=== PATIENT | female | born 1930 | race Caucasian/White ===

== ENCOUNTER → 2017-10-31 | Outpatient (CLI) | payer OTHER, BC ==
[~2017-10-31] MED LIST: ACIPHEX 20 MG T20 MG PO; ADULT LOW DOSE81 MG PO; ADVAIR 250-501 EACH INH; ADVAIR 500-501 EACH INH; ALBUTEROL NEB; ALEVE220 MG PO; APAP650 PO; ASPIRIN EC325 M1 PO; AZITHROMYCIN 2250 MG PO; AZITHROMYCIN PO; BACTRIM DS TAB1 EACH PO; BENZONATATE200 MG PO; BIAXIN 250MG T250 M1 PO; BROVANA15 MCG/2 M INH; BUDESONIDE0.25 MG/2 INH; CEFDINIR PO; CEFDINIR300 MG PO; CENTRUM SILVER1 EAC4 PO; COUMADIN 5 MG TA5 M1 PO; DOCUSATE SODIU100 MG; DUONEB 2.5-0.5 M3 ML INH; FLAGYL500 MG PO; FOSAMAX 70 MG T70 M1 PO; GABAPENTIN100 MG PO; LIDODERM 5%1 PATCH TOP; LIPITOR80 MG PO; LIVALO2 MG PO; LO-DOSE ASPIRIN81 M1 PO; LOMOTIL TABLET1 EACH PO; LOTRIMIN AF10 ML PO; LOVENOX SQ; MERREM 500500 MG/12 IV; METHOTREXATE 22.5 MG GT; MOBIC7.5 M1 PO; MUCINEX600 MG PO; NABUMETONE 500500 M1 PO; NEXIUM 40 MG CA40 M1 PO; NORCO 5-325 TA1 EACH PO; OMEPRAZOLE20 M2 PO; PLAVIX 75 MG TA75 MG PO; PRAVASTATIN SOD40 MG PO; PREDNISONE 10 M10 M1 PO; PREDNISONE 10 M10 MG; PREDNISONE 20 M20 M1 PO; PRILOSEC 20 MG20 MG PO; PROTONIX40 M2 PO; TESSALON PERLE100 MG PO; TRAMADOL 50 MG50 MG PO; TRAZODONE 150150 M1 PO; TRAZODONE HCL PO; ZPAK PO
== END ==
LOC: RAD 12:40
DX: M19.071 Primary osteoarthritis, right ankle and foot (principal)

== ENCOUNTER 2018-11-19 12:59 | Inpatient (IN) | payer OTHER, BC ==
[~2018-11-19] VITALS: Ht 160 cm; Wt 41.7 kg
[~2018-11-19 12:59] MED LIST changes: +MOBIC15 MG PO; -MOBIC7.5 M1 PO
[2018-11-19 13:48] LABS: ABSOLUTE NEUTROPHILS 4.4 thou/uL (1.4-8.2); BASOPHILS 0.3 % (0.0-2.0); EOSINOPHILS 1.3 % (0.0-3.0); HEMATOCRIT 44.6 % (37.0-47.0); LYMPHOCYTES 7.4 % (24.0-44.0); MCHC 33.6 g/dL (28.0-37.0); MCV 104.1 fL (80.0-100.0); MONOCYTES 7.5 % (1.0-8.0); PLATELET COUNT 126 thou/uL (150-400); POLYS 83.5 % (36.0-66.0); RBC 4.28 mil/uL (4.20-5.00); RDW 13.1 % (10.5-14.5); WBC 5.3 thou/uL (4.0-11.0)
[2018-11-19 13:58] LABS: ANION GAP 1 mmol/L (7-16); BUN 21 mg/dL (7-18); CHLORIDE 93 mmol/L (98-107); CO2 36 mmol/L (21-32); CREATININE 0.6 mg/dL (0.6-1.0); GLUCOSE 104 mg/dL (74-106); POTASSIUM 4.2 mmol/L (3.5-5.1); SODIUM 130 mmol/L (136-145)
[2018-11-19 14:01] LABS: BE(vivo) 5.6 mmol/L (-2 to +3); PO2 58.2 mmHg (80.0-100.0); sO2 86.4 % (92.0-98.0)
[2018-11-19 14:02] LABS: PCO2 72.4 mmHg (35.0-45.0); pH 7.302 (7.360-7.450)
[2018-11-19 14:08] LABS: ALBUMIN 3.3 g/dL (3.4-5.0); SGOT 22 U/L (15-37); SGPT 21 U/L (30-65); TOTAL BILIRUBIN 0.7 mg/dL (<0.1-1.0); TOTAL PROTEIN 7.4 g/dL (6.4-8.2); TROPONIN-I <0.06 ng/mL (<0.06)
[2018-11-19 15:12] LABS: URINE BILIRUBIN NEGATIVE (Negative); URINE BLOOD 1+ (Negative); URINE CLARITY CLEAR; URINE COLOR YELLOW; URINE GLUCOSE-RANDOM* NEGATIVE (Negative); URINE KETONES NEGATIVE (Negative); URINE LEUKOCYTES NEGATIVE (Negative); URINE NITRITE NEGATIVE (Negative); URINE PROTEIN (DIPSTICK) 1+ (Negative); URINE SPECIFIC GRAVITY 1.025 (1.005-1.035); URINE UROBILINOGEN 0.2 E.U./dl (0.2-1.0)
[2018-11-19 15:29] LABS: BACTERIA 1-9 Few /HPF (None Seen); CASTS None Seen /LPF (None Seen); CRYSTALS None Seen /LPF (None Seen); SQUAMOUS 4-10 Moderate /LPF (0-3); URINE RBC 0-2 Rare /HPF (0-2); URINE WBC 0-5 Rare /HPF (0-5)
[2018-11-19 16:12] VITALS: BP 156/88
[2018-11-19 17:05] VITALS: BP 150/70
--- NOTE | 2018-11-19 18:31 | NUR ---
Assumed care of Pt on arrival to unit at approx 1600. Pt AOx3 in mild resp distress. accompanied by daughter. severely diminished lung sounds on 7 L NC. pt voicing no concerns, other than occasional tailbone pain that has been going on for several months. Up w/ SBA to BR. physician notified and some home meds resumed. sinus on telemetry. will cont to monitor. IV abx infusing per order.
[2018-11-19 20:05] VITALS: BP 125/65
[2018-11-19 23:28] VITALS: BP 129/68
--- NOTE | 2018-11-20 04:39 | NUR ---
Tylenol given for tailbone pain with some relief. She slept fair during the night in between getting up to the bathroom. O2 at 3.5 L/NC with O2 sat in the mid 90's. Reported shortness of breath with exertion mostly but at times even at rest. Bed alarm on for safety. She calls appropriately. Pulmonary consult called to answering service last night. Will continue to monitor.
[2018-11-20 04:49] VITALS: BP 126/65
[2018-11-20 05:14] LABS: CALCIUM 8.6 mg/dL (8.5-10.1); CREATININE 0.5 mg/dL (0.6-1.0); HEMATOCRIT 43.1 % (37.0-47.0); HEMOGLOBIN 14.4 gm/dL (12.0-15.0); MCH 35.3 pg (26.0-34.0); MCHC 33.5 g/dL (28.0-37.0); MCV 105.5 fL (80.0-100.0); POTASSIUM 5.1 mmol/L (3.5-5.1); RBC 4.09 mil/uL (4.20-5.00); RDW 12.7 % (10.5-14.5)
[2018-11-20 07:15] VITALS: BP 118/53
--- NOTE | 2018-11-20 07:49 | EKG ---
[place] [address] [facility] [place] [address] ELECTROCARDIOGRAM REPORT Name: BELLTOM Room #: 353-P ADM IN M.R.#: [id number] ������������������ Admission: 11/19/18 ������������������ Attend Phys: Horace Hill Discharge: ������������������ Date of : 30 Report #: [id number] ����������������������������������������������������������������� [id number] THIS REPORT FOR: //name// [facility] ED Test Date: 2018-11-19 Test Time: 13:17:18 Pat Name: TOM BELL Department: Room: Gender: F Miner Assistant: WILFREDO : 1930 Requested By: Order Number: [id number] MD: Michael Miles Measurements Intervals [place] Rate: 96 P: 45 [place]: 220 QRS: -35 QRSD: 86 T: 4 QT: 340 QTc: 430 Interpretive Statements Sinus rhythm Prolonged [place] interval Left atrial enlargement Poor R wave progression Compared to ECG 11/27/2012 13:41:20 First degree AV block now present [place] has shifted leftward Electronically Signed On 11-20-2018 7:49:47 CDT by Michael Miles [email or web address] ��������������������������������������������� <ELECTRONICALLY SIGNED> ���������������������������������������� By: Michael Miles MD, [facility] ��������������������������������������������� 11/20/18 0749 1317 1317 Michael Miles MD, [facility] /EPI
[2018-11-20] MEDS ORDERED: COZAAR 25 MG TA25 M2 PO (09:32)
[2018-11-20] MEDS ORDERED: SYNTHROID25 MC1 PO (09:33)
[2018-11-20] MEDS ORDERED: PEPCID20 MG PO (09:35)
--- NOTE | 2018-11-20 09:36 | H ---
[facility] [address] [place] [address] HISTORY AND PHYSICAL Name: TOM BELL [facility] Room #: 353-P ADM IN M.R.#: [id number] Admission: 11/19/18 ������������������ Attend Phys: Horace Hill Discharge: ������������������ Date of : 30 Report #: [id number] THIS REPORT FOR: //name// CC: Reggie Mckenna DATE OF SERVICE: 11/19/2018 CHIEF COMPLAINT: Shortness of breath and weakness. 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 She was seen in the office yesterday and was going to be directed for admission, but today her daughter called the office and said she was very weak. She was having a hard time getting around her home and had some right foot and ankle swelling. She also required an increase in her oxygen requirement. She has a 30-year history of lung disease due to bronchiectasis and has most recently been taking Zithromax twice a day on chronic suppressive basis. She normally wears I believe 2.5 liters of oxygen at home. Briefly in ER, they had to bump her up to 7 liters, but currently is satting in the 90s on 3.5 liters and she is alert and comfortable. PAST MEDICAL HISTORY: Bronchiectasis, COPD, hypertension. PAST SURGICAL HISTORY: None. FAMILY HISTORY: Noncontributory. SOCIAL HISTORY: She has a [id number] history of smoking, but says she quit about 30 years ago. No chronic alcohol use. ALLERGIES: LIPITOR, CEFDINIR, OMEPRAZOLE, PENICILLIN, PRAVASTATIN, QUINOLONES, SULFA, TETANUS, AVELOX. MEDICATIONS: Mucinex, prednisone, Zithromax, meloxicam, aspirin, DuoNeb, Nexium. She reports discontinuing the gabapentin, trazodone, hydrocodone, and Fosamax. REVIEW OF SYSTEMS: She complains of sacral pain, otherwise no headache, chest pain, abdominal pain, nausea, vomiting, diarrhea, constipation, dysuria, syncope. OBJECTIVE: VITAL SIGNS: Temperature 36.5, pulse 92, respirations 20, blood pressure 125/65, O2 sat 94%. GENERAL: She is awake and alert, in no distress. HEAD AND NECK: Unremarkable. [address] [address] HISTORY AND PHYSICAL Name: TOM BELL [facility] Room #: 353-P [facility] IN .R.#: [id number] Admission: 11/19/18 ������������������ Attend Phys: Horace Hill Discharge: ������������������ Date of : 30 Report #: [id number] LUNGS: She has coarse rhonchi bilaterally with diminished breath sounds. HEART: Regular. ABDOMEN: Soft, normoactive bowel sounds. EXTREMITIES: No edema. She has muscle atrophy throughout. NEUROLOGIC: She is alert and oriented, recognizes me. Global strength 3/5 throughout. There is 1+ pitting edema in the right foot. LABORATORY REVIEW: A pH 7.3, pCO2 of 72, pO2 of 58 on 15-liter face mask. CBC was unremarkable. Sodium is 130, creatinine normal. Albumin 3.3. Chest x-ray shows interstitial pulmonary fibrosis and chronic lung changes. ASSESSMENT: 1. Chronic obstructive pulmonary disease exacerbation. 2. Chronic bronchiectasis. 3. [id number] hypoxic and hypercapnic respiratory failure. 4. Mild protein-calorie malnutrition, albumin 3.3. 5. Cystitis. 6. Thrombocytopenia. 7. Sacral pain. PLAN: For now, we will treat her chronic obstructive pulmonary disease exacerbation with IV Zithromax, steroids, nebulized treatments and flutter valve with respiratory therapy. We will ask Dr. Sharma to see her in consultation. She is allergic to multiple antibiotics, so at this point, we will discontinue with Zithromax. I spoke to her clearly at the bedside regarding code status. She said that she previously has had advance directive filled out and recognizes it given her advanced age and poor lung condition, she would not want to be kept alive or supported with ventilator machine at this point and clearly requested do not resuscitate status. I told her we will continue to medically treat her as best we can, but if a drastic event occurs, we will let her be in peace. ��������������������������������������������� <ELECTRONICALLY SIGNED> ���������������������������������������� By: Bryan Lynne MD ��������������������������������������������� 11/20/18 0936 2118 2143 Bryan Lynne MD /nt
[2018-11-20 11:22] VITALS: BP 110/55
--- NOTE | 2018-11-20 14:28 | NUR ---
INITIAL ASSESSMENT: SW reviewed chart and spoke with nursing. Pt was admitted from home due to hypoxia/weakness. PT eval ordered. Pt with hx of COPD and wears home O2. SW met with pt at bedside. Introduced role of SW. Pt is alert/orientated x 4. Pt reports she lives at home with her dtr. Prior to admission, pt was independent with ADLs. Pt does have a cane and walker at home to use if needed. There are no steps into the home and no steps inside the home. Pt has home O2 in place through [employer]. No hx of HH services or SNF/Rehab placement. Pt's PCP is Dr. Gerardo Mckenna. Plan is for pt to discharge home when medically stable. SW is following to assist as needed with discharge planning.
[2018-11-20 16:16] VITALS: BP 129/84
--- NOTE | 2018-11-20 16:32 | NUR ---
Assumed care of Pt at 0700. Pt alert and oriented x4 pleasant in no acute distress. fine crackles to auscultation. back on home dose O2 - 2L NC. up w/ sba. ambulated around hallway with physical therapy. calls out appropriately. sinus w/ 1st degree block on telemetry. pt voicing no concerns. good progress toward poc goals.
[2018-11-20 19:30] VITALS: BP 108/61
[2018-11-21 04:55] VITALS: BP 130/76
[2018-11-21 05:02] LABS: HEMATOCRIT 40.5 % (37.0-47.0); HEMOGLOBIN 13.5 gm/dL (12.0-15.0); MCHC 33.3 g/dL (28.0-37.0); MCV 105.1 fL (80.0-100.0); RBC 3.85 mil/uL (4.20-5.00); RDW 12.9 % (10.5-14.5); WBC 4.1 thou/uL (4.0-11.0)
[2018-11-21 05:27] LABS: CALCIUM 8.3 mg/dL (8.5-10.1); CREATININE 0.5 mg/dL (0.6-1.0); POTASSIUM 4.5 mmol/L (3.5-5.1)
--- NOTE | 2018-11-21 05:58 | NUR ---
Pt. stated she slept fair during the night. O2 at 2.5 L/NC with O2 sat in the mid to upper 90's. Shortness of breath with exertion. Ambulated around hallway x1 last night. Tylenol given for tailbone pain with some relief. Up with SBA to bathroom. Making progress towards care plan goals.
[2018-11-21 07:27] VITALS: BP 144/82
[2018-11-21 11:22] VITALS: BP 156/77
--- NOTE | 2018-11-21 13:46 | NUR ---
SW reviewed chart and spoke with nursing. Pt is progressing towards goals for discharge. Recommendation made for pt to go to pulmonary rehab after discharge home. Pt has home O2 in place. Portable tank at bedside. Plan is for pt to discharge home when medically stable. SW is following to assist as needed with discharge planning.
[2018-11-21 15:26] VITALS: BP 127/55
--- NOTE | 2018-11-21 17:20 | HC ---
[facility] [place] [address] [address] CONSULTATION Name: ARABELLATOM MOHINDER Room #: 353-P ADM IN M.R.#: [id number] Admission: 11/19/18 ������������������ Attend Phys: Horace Hill Discharge: ������������������ Date of : 30 Report #: [id number] THIS REPORT FOR: //name// CC: Reggie Mckenna REFERRING PHYSICIAN: Dr. Lynne. REASON FOR REFERRAL: COPD. HISTORY OF PRESENT ILLNESS: The patient is an 88-year-old white female who presents to the ED with progressive dyspnea and hypoxia. She has known COPD and bronchiectasis. Pulmonary consultation was requested. The patient is followed longitudinally by Dr. Sharad Pozo. She was just seen in the office in 09/2018. Her baseline FEV1 ranges around 0.58 liters or 40% predicted. The patient states that she was in her usual state of health until two days prior to presentation when she began to notice increasing dyspnea with hypoxia. Saturation was 68% on 4 liters of O2. All the past several years, she has also noticed progressively worsening of her dyspnea on exertion. She also notes difficulty to maintain her weight. She has lost some weight over the past couple of years. Appetite remains good. She has been on nutritional supplements. Otherwise, denies any chest pain, hemoptysis, nausea, vomiting, diarrhea. PAST MEDICAL HISTORY: COPD; severe impairment; bronchiectasis; chronic hypoxic respiratory failure needing 4 liters of O2, most recently, she needed 6 liters of O2, 24 hours a day; coronary artery disease; gastroesophageal reflux disease; history of pulmonary embolus 07/2017; hypertension; obstructive sleep apnea; history of Pseudomonas infection, has been on MAXIMO in the past. PAST SURGICAL HISTORY: Notable for skin cancer resection, cardiac catheterization. ALLERGIES: TO OMEPRAZOLE, WHICH CAUSES RASH; AVELOX, REACTIONS UNSPECIFIED; CEFDINIR CAUSES DIARRHEA; LIPITOR, REACTIONS UNSPECIFIED; PENICILLIN, REACTIONS UNSPECIFIED; PRAVASTATIN CAUSES LEG ACHES; TETANUS IMMUNE GLOBULIN. HOME MEDICATIONS: Lists are reviewed. This includes nebulizer DuoNeb, Proventil MDI, Fosamax, aspirin, azithromycin, Tessalon Perles, Pepcid, Advair 500 mg 1 puff twice a day, Mucinex, Cozaar, Mobic, Protonix. FAMILY HISTORY: Notable for cervical cancer in mother who at the age of 50. Father at the age of 56. He had liver disease. [address] [address] CONSULTATION Name: TOM BELL MOHINDER Room #: 353-P [facility] IN .R.#: [id number] Admission: 11/19/18 ������������������ Attend Phys: Horace Hill Discharge: ������������������ Date of : 30 Report #: [id number] SOCIAL HISTORY: She has smoked for several years, quit in 1989 and 1962. She drinks socially. REVIEW OF SYSTEMS: As mentioned above is notable for progressive weight loss. Progressive dyspnea on exertion. Otherwise, 10-point system review negative. PHYSICAL EXAMINATION: GENERAL: She is awake, alert, appears moderately dyspneic. VITAL SIGNS: Temperature is 97.4 degrees Fahrenheit, pulse is 79, respiratory rate is 20, blood pressure 110/55 mmHg, saturation 97%. HEENT: Normocephalic, atraumatic. NECK: Supple, without lymphadenopathy or thyromegaly. CHEST: Breath sounds are fair with mild expiratory wheezes and bilateral scattered crackles. CARDIOVASCULAR: Normal S1, S2. No murmurs or gallop. There is no JVD. There is no carotid bruit. Pulses are 2+/4+ bilaterally. ABDOMEN: Soft, nontender, no organomegaly or masses felt. GENITOURINARY: Deferred. RECTAL: Deferred. EXTREMITIES: There is no edema, cyanosis or clubbing. LABORATORY DATA: Chest x-ray shows chronic bilateral interstitial changes predominantly in the lower lung riggins. EKG shows sinus rhythm, no acute ischemic changes. X-ray of the pelvis shows mild spondylosis involving the lower spine, no acute fractures. Sodium 130, potassium 5.1, chloride 92, CO2 is 36, BUN is 19, creatinine 0.5. Liver enzymes are grossly unremarkable. WBC 2000, hemoglobin is 14.4. Arterial blood gas revealed pH 7.30, pCO2 72, pO2 58. IMPRESSION: 1. Fxrwp-jf-duyawao hypercapnic hypoxic respiratory failure in this 88-year-old white female. Etiology is probably related to the exacerbation of chronic obstructive pulmonary disease, bronchiectasis and possible lower respiratory tract infection. 2. Chronic obstructive pulmonary disease, bronchiectasis, severe impairment. 3. Chronic hypoxic respiratory failure. The patient had needed 4 liters of O2. Currently, she is now needing 6 liters of O2. Arrangements will be made prior to discharge. 4. 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 5. Coronary artery disease. 6. Gastroesophageal reflux disease. 7. History of pulmonary embolus 07/2017, has been off anticoagulant therapy. 8. History of sleep apnea, this will be further discussed with the patient regarding treatment. 9. Hypertension. 10. Past history of Pseudomonas infection. 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 Would await sputum culture. RECOMMENDATION: Would suggest broad spectrum antibiotics, cover for Pseudomonas organisms, corticosteroids, bronchodilators. DVT and GI prophylaxis recommended. Nutritional support would also be recommended with dietary consultation. The patient had been on appetite stimulant. She states that this did not help very much. Thank you for this consultation. ��������������������������������������������� <ELECTRONICALLY SIGNED> ���������������������������������������� By: Car Sharma MD ��������������������������������������������� 11/21/18 1720 1832 1226 Car Sharma MD /nt
--- NOTE | 2018-11-21 18:36 | NUR ---
ASSUMED PATIENT CARE AT 0700. A/O X4. ANXIOUS SOMETIMES. AMBULATED IN ROOM. SOB WITH EXERTION. SLOWLY TOWARDS POC GOALS.
[2018-11-21 20:00] VITALS: BP 136/67
[2018-11-22 03:10] VITALS: BP 144/66
--- NOTE | 2018-11-22 03:45 | NUR ---
ASSUMED PT CARE AROUND 1900. A&OX4. C/O LOW BACK PAIN. TYLENOL GIVEN WITH SOME RELIEF. SOA W/ EXERTION. O2 SATS STABLE ON 2.5L NC. PT SLEPT MOST OF THE NIGHT. RESP EVEN AND UNLABORED. UP W/ SBA TO BTR. VSS. FALL PRECAUTIONS IN PLACE. PROGRESSING TOWARD POC GOALS. WILL CONTINUE TO MONITOR FURTHER.
[2018-11-22 07:41] VITALS: BP 149/82
[2018-11-22 11:13] VITALS: BP 156/76
[2018-11-22 15:26] VITALS: BP 154/88
--- NOTE | 2018-11-22 17:53 | NUR ---
Assumed care of Pt at 0700. Pt AOX4 pleasant in no acute distress. Breathing comfortably on home dose O2. fine crackles to auscultation. ambulated around hallways several time without difficulty. IV abx infusing per order. vitals stable. no other remarkable changes to report. pt progressing toward poc goals.
[2018-11-22 20:00] VITALS: BP 129/72
--- NOTE | 2018-11-23 04:21 | NUR ---
PT MAKING PROGRESS TOWARDS GOALS. PT UP WITH SBA ONLY WITH STABLE GAIT. DOES WELL WITH COORDINATED OXYGEN TUBING SHE WALKS TO THE BATHROOM. DID AMBULATE THE HALLWAY ONCE WHICH RESULTED IN MILD SOA UPON COMPLETION. LUNGS WITH FAINT CRACKLES, COARSE IN UPPER LOBES THIS MORNING. MILD CHEST DISCOMFORT AND THROAT DISCOMFORT R/T COUGHING PER PT. SPOKE WITH PHARMACY, CEPACOL LOZENGE PLACED PER NURSING ORDER. ON O2 AT 2.5L THROUGHOUT THE NIGHT.
[2018-11-23 04:30] VITALS: BP 147/82
[2018-11-23 04:49] LABS: HEMATOCRIT 42.3 % (37.0-47.0); HEMOGLOBIN 13.8 gm/dL (12.0-15.0); MCH 34.7 pg (26.0-34.0); MCHC 32.7 g/dL (28.0-37.0); MCV 106.2 fL (80.0-100.0); RBC 3.99 mil/uL (4.20-5.00); RDW 13.3 % (10.5-14.5); WBC 4.7 thou/uL (4.0-11.0)
[2018-11-23 05:18] LABS: CALCIUM 8.5 mg/dL (8.5-10.1); CREATININE 0.6 mg/dL (0.6-1.0)
[2018-11-23 08:46] VITALS: BP 162/80
--- NOTE | 2018-11-23 14:07 | NUR ---
PATIENT CONT TO PROGRESS TOWARDS DISCHARGE GOALS. SHE AMBULATED WITH NURSE ROUND UNIT WITH MINIMAL DIFFICULTY. SHE DOES NOT SEEM TO BE IN PAIN AT THIS TIME. RESPIRATIONS ARE EVEN NON LABORED. CONT ON OXYGEN NC 2.5L. WILL CONT WITH PLAN OF CARE.
[2018-11-23 17:17] VITALS: BP 163/72
[2018-11-23 21:46] VITALS: BP 161/69
[2018-11-24 04:18] VITALS: BP 155/75
--- NOTE | 2018-11-24 07:23 | NUR ---
Pt. requested tylenol for lower back pain with some relief. She slept intermittently during the night in between getting up to the bathroom. O2 at 2.5 L.NC and still gets short of breath with exertion though stated better than before. Ambulated around hallway last night. Making progress towards care plan goals.
[2018-11-24 07:26] VITALS: BP 151/78
[2018-11-24 11:30] VITALS: BP 169/91
[2018-11-24] MEDS ORDERED: ACETAMINOPHEN325 M1 PO (12:20)
[2018-11-24] MEDS ORDERED: PREDNISONE 20 M20 M1 PO (12:21)
[2018-11-24] MEDS ORDERED: TRAMADOL 50 MG50 MG PO (12:24)
[2018-11-24 13:18] VITALS: BP 169/91
--- NOTE | 2018-11-24 14:50 | NUR ---
DISCHARGE NOTE: SW reviewed chart and spoke with nursing. Pt is medically stable for discharge home today. SW met with pt at bedside to discuss discharge plan. No SW needs identified. Pt's dtr to provide transportation home. SW is available to assist should needs arise.
--- NOTE | 2018-11-26 12:00 | D ---
[place] [address] DISCHARGE SUMMARY Name: ARABELLASALENATOM MOHINDER Room #: 353-P [facility] IN M.R.#: [id number] Admission: 11/19/18 ������������������ Attend Phys: Horace Hill Discharge: 11/24/18 ������������������ Date of : 30 Report #: [id number] THIS REPORT FOR: //name// CC: Reggie Mckenna DATE OF SERVICE: 11/24/2018 FINAL DIAGNOSES: 1. Chronic bronchiectasis. 2. Chronic obstructive pulmonary disease exacerbation. 3. Acute on chronic hypoxic respiratory failure. HOSPITAL COURSE: The patient was admitted with shortness of breath. She required higher levels of oxygen. She was diagnosed and treated for COPD exacerbation due to her underlying chronic bronchiectasis. IV antibiotics, steroids, and breathing treatments along with other pulmonary treatments were ordered, and she was followed by Dr. Sharma. She had no other interval complications. By the time of discharge, she was back to her baseline 2.5 liters oxygen nasal cannula with O2 sats in the 92-99% range. PHYSICAL EXAMINATION: GENERAL: On the day of discharge, she was awake and alert. VITAL SIGNS: Stable. LUNGS: Had some expiratory rhonchi. HEART: Regular. ABDOMEN: Soft, normoactive bowel sounds. EXTREMITIES: No edema. DISPOSITION: She is discharged to home with diet and activity as tolerated, resume all home medications plus prednisone 20 mg b.i.d. for a week, then 20 mg a day and then to follow up in the office of Dr. Mckenna in 1 week, Dr. Sharma in 2 weeks. ��������������������������������������������� <ELECTRONICALLY SIGNED> ���������������������������������������� By: Bryan Lynne MD ��������������������������������������������� 11/26/18 1200 1305 1922 Bryan Lynne MD /nt
== END 2018-11-24 14:39 | disposition home or self-care (01) | DRG 193 ==
LOC: ER 12:59 → 3W 15:00 → EROBS 15:00 → 3W 16:28 → ENTRNSPT 11-24 14:25 → EDTRNSPTSTS 11-24 14:28 → 3W 11-24 14:39
PROVIDERS: Emergency Medicine; Internal Medicine Geriatric Medicine; Internal Medicine Pulmonary Disease; ADMIT Internal Medicine
DX: J18.9 Pneumonia, unspecified organism (principal); J96.21 Acute and chronic respiratory failure with hypoxia; J96.22 Acute and chronic respiratory failure with hypercapnia; J44.1 Chronic obstructive pulmonary disease with (acute) exacerbation; Z68.1 Body mass index [BMI] 19.9 or less, adult; E44.1 Mild protein-calorie malnutrition; J44.0 Chronic obstructive pulmonary disease with (acute) lower respiratory infection; K21.9 Gastro-esophageal reflux disease without esophagitis; N30.90 Cystitis, unspecified without hematuria; D69.6 Thrombocytopenia, unspecified; Z66 Do not resuscitate; G47.33 Obstructive sleep apnea (adult) (pediatric); I25.10 Atherosclerotic heart disease of native coronary artery without angina pectoris; I10 Essential (primary) hypertension; Z87.01 Personal history of pneumonia (recurrent); Z79.82 Long term (current) use of aspirin; Z88.0 Allergy status to penicillin; Z88.2 Allergy status to sulfonamides; Z95.5 Presence of coronary angioplasty implant and graft; Z88.8 Allergy status to other drugs, medicaments and biological substances; Z88.1 Allergy status to other antibiotic agents; Z87.891 Personal history of nicotine dependence; Z86.711 Personal history of pulmonary embolism; Z85.828 Personal history of other malignant neoplasm of skin; Z80.8 Family history of malignant neoplasm of other organs or systems; Z88.7 Allergy status to serum and vaccine
CPT/HCPCS: 10879

== ENCOUNTER 2018-11-26 09:56 | Inpatient (IN) | payer OTHER, BC ==
[~2018-11-26] VITALS: Ht 160 cm; Wt 41.3 kg
[~2018-11-26 09:56] MED LIST changes: +ACETAMINOPHEN325 M1 PO; +COZAAR 25 MG TA25 M2 PO; +PEPCID20 MG PO; +SYNTHROID25 MC1 PO
[2018-11-26 09:57] VITALS: BP 147/83
[2018-11-26 10:45] LABS: ABSOLUTE NEUTROPHILS 9.7 thou/uL (1.4-8.2); BASOPHILS 0.1 % (0.0-2.0); EOSINOPHILS 0.2 % (0.0-3.0); HEMATOCRIT 49.4 % (37.0-47.0); HEMOGLOBIN 16.6 gm/dL (12.0-15.0); LYMPHOCYTES 3.6 % (24.0-44.0); MCH 35.1 pg (26.0-34.0); MCHC 33.5 g/dL (28.0-37.0); MCV 104.6 fL (80.0-100.0); MONOCYTES 4.6 % (1.0-8.0); PLATELET COUNT 140 thou/uL (150-400); POLYS 91.5 % (36.0-66.0); RBC 4.72 mil/uL (4.20-5.00); RDW 13.1 % (10.5-14.5); WBC 10.6 thou/uL (4.0-11.0)
[2018-11-26 10:53] LABS: ANION GAP 1 mmol/L (7-16); BUN 16 mg/dL (7-18); CALCIUM 9.6 mg/dL (8.5-10.1); CHLORIDE 97 mmol/L (98-107); CO2 40 mmol/L (21-32); CREATININE 0.7 mg/dL (0.6-1.0); GLUCOSE 148 mg/dL (74-106); POTASSIUM 3.7 mmol/L (3.5-5.1); SODIUM 138 mmol/L (136-145)
[2018-11-26 11:03] LABS: ALBUMIN 3.6 g/dL (3.4-5.0); SGOT 25 U/L (15-37); SGPT 37 U/L (30-65); TOTAL BILIRUBIN 0.7 mg/dL (<0.1-1.0); TROPONIN-I <0.06 ng/mL (<0.06)
[2018-11-26 11:16] LABS: URINE BILIRUBIN NEGATIVE (Negative); URINE BLOOD NEGATIVE (Negative); URINE CLARITY CLEAR; URINE COLOR YELLOW; URINE GLUCOSE-RANDOM* NEGATIVE (Negative); URINE KETONES NEGATIVE (Negative); URINE LEUKOCYTES-REFLEX NEGATIVE (Negative); URINE NITRITE-REFLEX NEGATIVE (Negative); URINE PROTEIN (DIPSTICK) TRACE (Negative); URINE UROBILINOGEN 0.2 E.U./dl (0.2-1.0)
[2018-11-26 11:19] LABS: BE(vivo) 11.9 mmol/L (-2 to +3); HCO3 37.3 mmol/L (22.0-26.0); PCO2 49.8 mmHg (35.0-45.0); pH 7.492 (7.360-7.450); sO2 88.6 % (92.0-98.0)
[2018-11-26 11:20] LABS: PO2 51.3 mmHg (80.0-100.0)
[2018-11-26 13:41] VITALS: BP 149/70
[2018-11-26 16:48] VITALS: BP 131/74
[2018-11-26 17:54] VITALS: BP 190/110
[2018-11-26 19:01] VITALS: BP 151/75
--- NOTE | 2018-11-26 19:33 | NUR ---
PT ADMITTED FROM ED THIS ANEL @ 1700...REPORTS SHE WEARS 2L AT HOME CONT BUT NEEDS 5L PRESENTLY...LIN NOTED...DIURESING WELL WITH IV LASIX GIVEN @ 1600...
[2018-11-26 23:24] VITALS: BP 151/91
[2018-11-27 04:22] VITALS: BP 148/78
--- NOTE | 2018-11-27 04:50 | NUR ---
PATIENT IS PROGRESSING IN HER CARE PLAN. VITAL SIGNS STABLE WITH PATIENT HAVING NO COMPLAINTS OF NAUSEA. PATIENT DID COMPLAIN OF PAIN IN LOWER BACK AND CHEST DUE TO COUGHING WHICH WAS TREATED EFFECTIVELY WITH PRN MEDICATIONS. FULLY ORIENTED, PATIENT WAS ABLE TO PARTICIPATE IN CARE AND CALL EFFECTIVELY FOR NEEDS. BREATHING STABLE ON 5-6 LITERS NASAL CANNULA EVIDENCED BY SPOT OXYGENATION CHECKS. PATIENT HAS BEEN ABLE TO AMBULATE TO BATHROOM MULTIPLE TIMES WITH STANDBY ASSISTANCE INCIDENT FREE. CONTINUE PLAN OF CARE.
[2018-11-27 05:30] LABS: HEMATOCRIT 42.1 % (37.0-47.0); MCH 34.9 pg (26.0-34.0); MCHC 33.6 g/dL (28.0-37.0); MCV 103.7 fL (80.0-100.0); RBC 4.06 mil/uL (4.20-5.00); RDW 12.6 % (10.5-14.5); WBC 4.3 thou/uL (4.0-11.0)
[2018-11-27 05:36] LABS: HEMOGLOBIN 14.1 gm/dL (12.0-15.0)
[2018-11-27 05:38] LABS: CALCIUM 8.6 mg/dL (8.5-10.1); CREATININE 0.6 mg/dL (0.6-1.0); POTASSIUM 4.3 mmol/L (3.5-5.1)
--- NOTE | 2018-11-27 09:04 | 2DMMODE ---
[facility] [address] [place] [address] 2 D/M-MODE ECHOCARDIOGRAM Name: ARABELLACRISTELATOM MOHINDER Room #: 357-P ADM IN M.R.#: [id number] ������������� Admission: 11/26/18 ������������� Attend Phys: Reggie Dunn Discharge: ��� ������������� ��� Date of : 30 Date of Service: 11/27/18 0903 �� Report #: [id number] �������� ��������������������������������������������[id number] THIS REPORT FOR: //name// APPROVED REPORT Study performed: 11/27/2018 07:16:23 EXAM: Comprehensive 2D, Doppler, and color-flow Echocardiogram Patient Location: Bedside Room #: 357 Status: routine BSA: 1.37 HR: 78 bpm BP: 148/78 mmHg Rhythm: NSR Other Information Study Quality: Adequate Indications COPD Dyspnea Hx: CAD, stent, HTN, PE. 2D Dimensions RVDd: 30.96 mm IVSd: 9.69 (7-11mm) LVOT Diam: 20.34 (18-24mm) LVDd: 41.42 mm PWd: 9.40 (7-11mm) LVDs: 27.41 (25-40mm) Aortic Root: 33.49 mm Volumes Left Atrial Volume (Systole) Single Plane 4CH: 42.30 mL Single Plane 2CH: 50.26 mL LA ESV Index: 38.00 mL/m2 Aortic Valve AoV Peak Mikey.: 2.13 m/s AO Peak Gr.: 18.10 mmHg LVOT Max P.08 mmHg AO Mean Gr.: 9.30 mmHg AO V2 Mean: 1.45 m/s LVOT Max V: 0.88 m/s AO V2 VTI: 44.70 cm RANDA Vmax: 1.34 cm2 [facility] [address] [place] [address] 2 D/M-MODE ECHOCARDIOGRAM Name: BELLSALENATOM [facility] Room #: 357-P [facility] IN .R.#: [id number] ������������� Admission: 11/26/18 ������������� Attend Phys: Reggie Dunn Discharge: ��� ������������� ��� Date of : 30 Date of Service: 11/27/18 0903 �� Report #: [id number] �������� ��������������������������������������������[id number] Mitral Valve E/A Ratio: 0.6 MV Decel. Time: 258.18 ms MV E Max Mikey.: 0.82 m/s MV A Mikey.: 1.35 m/s MV PHT: 74.87 ms IVRT: 103.81 ms Pulmonary Valve PV Peak Mikey.: 0.81 m/s PV Peak Gr.: 2.62 mmHg Pulmonary Vein P Vein S: 0.53 m/s P Vein A: 0.33 m/s P Vein D: 0.39 m/s P Vein A Dur.: 131.5 msec P Vein S/D Ratio: 1.36 Tricuspid Valve TR Peak Mikey.: 2.35 m/s RAP Estimate: 10.00 mmHg TR Peak Gr.: 22.16 mmHg PA Pressure: 33.00 mmHg Left Ventricle The left ventricle is normal size. There is normal LV segmental wall motion. There is normal left ventricular wall thickness. Left ventricular systolic function is normal. LVEF is 60-65%. Mild diastolic dysfunction is present (impaired relaxation pattern). Right Ventricle The right ventricle is normal size. The right ventricular systolic function is normal. Atria Left atrium is mildly dilated. The right atrium size is normal. Aortic Valve Aortic valve is moderately calcified, trileaflet. Mild aortic regurgitation. Mild aortic stenosis Calculated aortic valve area is 1.3 cm2 with maximum pressure gradient of 18 mmHg and mean pressure gradient of 10 mmHg. Mitral Valve Mitral valve leaflets are thickened and calcified. Mild mitral annular calcification. Trace mitral regurgitation. No evidence of mitral valve stenosis. [facility] [address] [place] [address] 2 D/M-MODE ECHOCARDIOGRAM Name: TOM BELL [facility] Room #: 357-P [facility] IN ..#: [id number] ������������� Admission: 11/26/18 ������������� Attend Phys: Reggie Dunn Discharge: ��� ������������� ��� Date of : 30 Date of Service: 11/27/18 0903 �� Report #: [id number] �������� ��������������������������������������������[id number] Tricuspid Valve The tricuspid valve is normal in structure. Trace to mild tricuspid regurgitation. Estimated PAP is 30-35mmHg. Pulmonic Valve The pulmonary valve is normal in structure. Mild to moderate pulmonic regurgitation. Great Vessels The aortic root is normal in size. Ascending aorta is not well visualized. IVC is dilated and collapses >50% with inspiration. Pericardium There is no pericardial effusion. <Conclusion> Left ventricular systolic function is normal. There is normal LV segmental wall motion. LVEF is 60-65%. Mild diastolic dysfunction Aortic valve is moderately calcified, trileaflet. Mild aortic stenosis and insufficiency Calculated aortic valve area is 1.3 cm2 with maximum pressure gradient of 18 mmHg and mean pressure gradient of 10 mmHg. Mitral valve leaflets are thickened and calcified. Mild mitral annular calcification. Trace mitral regurgitation. Pulmonary artery pressure could not be reliably ascertained There is no pericardial effusion. ��������������������������������������������� <ELECTRONICALLY SIGNED> ���������������������������������������� By: Michael Miles MD, FACC ��������������������������������������������� 11/27/18902 2 2 Michael Miles MD, FACC /INF
--- NOTE | 2018-11-27 09:29 | H ---
[facility] [place] [address] HISTORY AND PHYSICAL Name: ARABELLATOM MOHINDER Room #: 357-P ADM IN M.R.#: [id number] Admission: 11/26/18 ������������������ Attend Phys: Horace Hill Discharge: ������������������ Date of : 30 Report #: [id number] THIS REPORT FOR: //name// CC: Reggie Mckenna DATE OF SERVICE: 11/26/2018 CHIEF COMPLAINT: Shortness of breath. HISTORY OF PRESENT ILLNESS: The patient is an 88-year-old female with pulmonary disease came back to the Emergency Room today with shortness of breath. She said at home, she was having trouble breathing and O2 sats were 60% on room air. She normally wears 2.5 liters nasal cannula. She also noted some increasing ankle edema. She was just hospitalized last week and released on Saturday after treatment for bronchiectasis and COPD exacerbation. She responded to IV antibiotics, steroids, and weaned back to her baseline 2.5 liter nasal cannula oxygen and edema resolved with elevation of her legs in bed. PAST MEDICAL HISTORY: Chronic bronchiectasis, COPD. She has had multiple admissions for pneumonia over a 30-year period, hypertension, coronary artery disease, osteoarthritis. She has had a cardiac stent previously. She was treated for a pulmonary embolus in 2010. PAST SURGICAL HISTORY: None. FAMILY HISTORY: Noncontributory. SOCIAL HISTORY: A [id number] history of smoking, quit many years ago. She is and lives with her daughter. ALLERGIES: LIPITOR, CEFDINIR, OMEPRAZOLE, PENICILLIN, PRAVASTATIN, QUINOLONES, SULFA, TETANUS. MEDICATIONS: Azithromycin, losartan, Synthroid, Pepcid, multivitamin, Mucinex, aspirin, DuoNeb, Advair, prednisone taper, tramadol. REVIEW OF SYSTEMS: She is asleep after IV sedation medication in ER. OBJECTIVE: VITAL SIGNS: Temperature 37.1, pulse 87, respirations 24, blood pressure 149/70, O2 sat 95%. GENERAL: She is asleep, somnolent, in no distress. HEAD AND NECK: Unremarkable. LUNGS: Some expiratory rhonchi. HEART: Regular. ABDOMEN: Soft, normoactive bowel sounds. [facility] [address] [place] [address] HISTORY AND PHYSICAL Name: TOM BELL [facility] Room #: 357-P ADM IN ..#: [id number] Admission: 11/26/18 ������������������ Attend Phys: Horace Hill Discharge: ������������������ Date of : 30 Report #: [id number] EXTREMITIES: 1+ ankle edema. NEUROLOGIC: She moves all extremities, but spontaneously, but is drowsy and is not following commands. LABORATORY DATA: A pH 7.49, pCO2 of 49, pO2 of 51 on 3.5 liters nasal cannula. Troponin negative. BNP 1300. Doppler ultrasound of the legs was negative for DVT. Chest x-ray shows some slight improvement in areas of atelectasis and pneumonia in the right lower lobe. ASSESSMENT: 1. Acute on chronic hypoxic respiratory failure. 2. Chronic obstructive pulmonary disease exacerbation. 3. Chronic bronchiectasis. PLAN: Antibiotics and pulmonary treatments to be initiated. I will order a CT of the chest to rule out pulmonary embolus given her prior history. Pulmonary Service to see her too. I spoke to her daughter at the bedside again and reconfirmed do not resuscitate status as the patient had confirmed to me during her last hospital stay. DNR will continue during this stay. ��������������������������������������������� <ELECTRONICALLY SIGNED> ���������������������������������������� By: Bryan Lynne MD ��������������������������������������������� 11/27/18 0929 1404 1422 Bryan Lynne MD /nt
--- NOTE | 2018-11-27 10:43 | NUR ---
ASSESSMENT: CM REVIEWED CHART AND MET WITH PATIENT AT THE BEDSIDE. PT WAS ADMITTED DUE TO HYPOXIA. PT WAS RECENTLY HERE AT [facility]. PT REPORTS SHE LIVES AT HOME WITH HER DAUGHTER. CM ATTEMPTED TO CONTACT REGINA BUT UNABLE TO REACH AND LEFT VM. PT REPORTS SHE HAS NO STEPS TO ENTER THE HOME OR ONCE INSIDE. PT REPORTS SHE AMBULATES AT TIMES INDEPENDENTLY AND ALSO HAS A WALKER. PT REPORTS HAVING A GRAB BAR AND SHOWER CHAIR AT HOME AND IS INDEPENDENT WITH ADLS. PT DENIES HAVING HH IN THE PAST OR BEING TO SNF/REHAB. PT HAS OXYGEN AT HOME THROUGH [employer]. CM DISCUSSED ROLE. PT DOES NOT ANTICIPATE HAVING ANY NEEDS AT DISCHARGE. CM WILL CONTINUE TO FOLLOW TO ASSIST NEEDED.
[2018-11-27 11:43] VITALS: BP 135/76
[2018-11-27 16:13] VITALS: BP 133/80
--- NOTE | 2018-11-27 16:28 | EKG ---
[address] [address] ELECTROCARDIOGRAM REPORT Name: BELLTOM Room #: 357-P ADM IN M.R.#: [id number] ������������������ Admission: 11/26/18 ������������������ Attend Phys: Horace Hill Discharge: ������������������ Date of : 30 Report #: [id number] ����������������������������������������������������������������� [id number] THIS REPORT FOR: //name// [facility] ED Test Date: 2018-11-26 Test Time: 10:28:24 Pat Name: TOM BELL Department: Room: 357 Gender: F Nuclear Technician: noni : 1930 Requested By: Meli Stiles Order Number: [id number] MD: Eddi Woods Measurements Intervals [place] Rate: 95 P: 60 DC: 184 QRS: -12 QRSD: 86 T: 4 QT: 344 QTc: 433 Interpretive Statements Sinus rhythm Probable left atrial enlargement Abnormal R-wave progression, late transition Compared to ECG 11/19/2018 13:17:18 First degree AV block no longer present Poor R-wave progression no longer present Electronically Signed On 11-27-2018 16:28:18 CDT by Eddi Woods [email or web address] ��������������������������������������������� <ELECTRONICALLY SIGNED> ���������������������������������������� By: Eddi Woods MD ��������������������������������������������� 11/27/18 1628 1028 1028 Eddi Woods MD /EPI
[2018-11-27 19:16] VITALS: BP 154/79
[2018-11-28] VITALS (7 sets, daily range): BP systolic 144–190; BP diastolic 77–92
--- NOTE | 2018-11-28 06:42 | NUR ---
PATIENT IS ALERT AND ORIENTED. PATIENTS LBM WAS THE 15TH. PATIENT IS NSR ON TELE. PATIENT IS SBA TO THE BATHROOM. PATIENT IS ON 8L HIGH FLOW NC. 2.5L NC IS BASELINE. PATIENT DENIES PAIN. PATIENT RUFUSED BATH. PATIENT STATS STAYED IN THE 90% WITH THE HIGH FLOW NC. PATIENT IS RESTING COMFORTABLY IN BED WCM.
--- NOTE | 2018-11-28 08:53 | NUR ---
care of pt assumed this am @ ~0700. pt noted to ambulate x1 sba to the bthrm w/ a steady, balanced and coordinated gait. pt denies soa, no cough at this time and no mucous production. pt on o2 @ 8lt per nc at this time, will try to titrate today as pt is 2.5lt per nc at home. pt enjoying her breakfast this am. pt informed of pt and ot evaluations today. pt co of tailbone pain this am, medicated for by martha rn as pt states she does not have much "padding" on her tailbone so it is hurting her from being in bed so much.
--- NOTE | 2018-11-28 12:53 | NUR ---
DISCHARGE PLANNING. PER ATTENDING PATIENT WOULD BENEFIT FROM LTAC PLACEMENT FOR LONGER TERM IV ABX, HIGH FLOW 02 AND THERAPEUTIC BROCH IF NEEDED. REFERRAL FAXED TO [facility], FOR DISCHARGE PLACEMENT NEEDS. [facility] NOTIFIED OF REFERRAL AND ANTICIPATED DISCHARGE DATE FOR SATURDAY. UNIT CM/SW AWARE. FOLLOWING TO ASSIST.
--- NOTE | 2018-11-28 14:32 | NUR ---
ON-GOING ASSESSMENT: CM REVIEWED CHART AND SPOKE WITH ATTENDING. DUE TO PATIENT BEING ON IV ANBX AND INCREASED OXYGEN NEEDS (CURRENTLY 8L) PHYSICIAN IS RECOMMENDING LTAC AT DISCHARGE. CM MET WITH PATIENT AT THE BEDSIDE AND STATES PHYSICIAN DISCUSSED THIS WITH HER AND THAT SHE MAY BE INTERESTED AND WANTED A REFERRAL SENT TO [facility]. PT REQUESTED CM REACH OUT TO HER DAUGHTER. CM SPOKE WITH BALTA HER DAUGHTER VIA THE PHONE AND SHE WAS TEARFUL STATING SHE ALWAYS TOLD HER MOTHER SHE WOULD NOT PLACE HER SOMEWHERE LIKE THAT. CM DISCUSSED THE GOAL WOULD BE TO GO THERE THEN RETURN HOME. DAUGHTER IS AGREEABLE WITH REFERRAL BUT WANTS TO SEE IF SHE IMPROVES IF THERE IS ANYWAY SHE MAY BE ABLE TO RETURN HOME. CM NOTIFIED D/C STEAM AND POWER SUPERINTENDENT WHO ASSISTED IN SENDING REFERRAL TO [facility]. LIASON IS AWARE. CM WILL CONTINUE TO FOLLOW TO ASSIST NEEDED. NO WEEKEND DISCHARGE ANTICIPATED.
[2018-11-29 03:50] VITALS: BP 182/79
--- NOTE | 2018-11-29 05:02 | NUR ---
Patient slept most of shift. Patient called out appropriately to use the restroom. Patient up standby while steady and balanced on her feet. Patient given tylenol once for pain of her sacrum. Patient states it is because she has lost weight and doesn't have much fat now. Patient later stated her pain hasn't been an issue because she is moving around more. Patient was coarse then wheezey earlier into the shift but sounded clear this AM. Patient was on 6L NC at shift change but switched back to 8L NC per RT as the patient was breathing a little harder. Patient making partial progress toward plan of care goals at this time.
[2018-11-29 07:07] VITALS: BP 183/85
--- NOTE | 2018-11-29 07:40 | NUR ---
Dr. Reggie Mckenna paged this AM to notify him of two consecutive high BP's with SBP in the 180's. [facility] nurse notified in report that he should be returning a call to the unit soon. [facility] TOREY Villaseñor made aware of high SBP's and will pass on to the doctor when Dr. Mckenna returns call.
[2018-11-29 12:20] VITALS: BP 155/85
[2018-11-29 16:01] VITALS: BP 148/91
--- NOTE | 2018-11-29 16:28 | NUR ---
Assumed care of Pt at 0700. Pt AOX4 in no acute distress. Coarse/fine crackles to auscultation - on 8L NC. up indipedently with steady gait. SOA w/ activity but paces herself well. calls out appropriately. blood pressure showing improvement. no other remarkable changes to report. pt progressing toward poc goals.
[2018-11-29 18:59] VITALS: BP 159/91
[2018-11-30 04:50] VITALS: BP 177/96
[2018-11-30 08:00] VITALS: BP 158/82
[2018-11-30 11:25] VITALS: BP 147/69
--- NOTE | 2018-11-30 15:09 | NUR ---
ASSUMED CARE AT 0700. PT A&OX4. PT ON 3.5L NC. PT O2 SATS >THAN 90%. PT IS STEADY ON HER FEET WHEN UP WALKING. PT HAS IV ANTIBIOTICS INFUSING ORDERED AND CALLS OUT APPROPRIATELY WHEN ANTIBIOTICS INFUSING FOR HELP WITH MULTIPLE WIRES AND LINES. PT HAS CLEAR LUNGS THAT ARE WHEEZY IN THE BASES. PT HAD SHOWER TODAY. PT'S DAUGHTER HERE THIS MORNING AND STATES HER PLAN IS TO [facility] TOMORROW MORNING.
[2018-11-30 16:16] VITALS: BP 130/68
[2018-11-30 19:55] VITALS: BP 150/76
--- NOTE | 2018-12-01 04:02 | NUR ---
PATIENT IS ADVANCING IN HER CARE PLAN. VITAL SIGNS STABLE WITH PATIENT HAVING NO COMPLAINTS OF NAUSEA AND MINIMAL COMPLAINT OF PAIN IN LOWER BACK. PATIENT IS ALERT AND ORIENTED AND ABLE TO CALL APPROPRIATELY FOR NEEDS. BREATHING STABLE ON OXYGEN EVIDENCED BY SPOT OXYGENATION CHECKS. PATIENT HAS BEEN UP TO BATHROOM MULTIPLE TIMES WITH STANDBY ASSISTANCE INCIDENT FREE. PATIENT IS ANXIOUS FOR POTENTIAL DISCHARGE TO FACILITY TODAY. CONTINUE PLAN OF CARE.
[2018-12-01 05:15] VITALS: BP 168/73
[2018-12-01 08:03] VITALS: BP 147/81
[2018-12-01 11:16] VITALS: BP 140/62
[2018-12-01] MEDS ORDERED: IPRAT-ALBUT 0.5-3 ML INH (13:37)
[2018-12-01] MEDS ORDERED: MERREM1 GM IV (13:37)
[2018-12-01] MEDS ORDERED: SOLU-MEDRO125 MG/23 IV PUSH (13:38)
--- NOTE | 2018-12-01 15:32 | NUR ---
ASSUMED CARE OF PT AT APPROX 0700. PT IS ALERT AND ORIENTED X4, MONITORED ON TELE AND ABLE TO MAINTAIN 02 SAT >90 ON 02 SETTINGS VIA HIGHFLOW NC. PT COMPLAINS OF PAIN IN TAILBONE THAT IS PARTIALLY RESOLVED WITH TYLENOL AND REPOSITIONING. PT IS ANXIOUS ABOUT GOING TO [facility] TODAY BUT IS READY. MIDLINE PLACED, PT TOLERATED WELL. MAKING GOOD PROGRESS TOWARDS POC GOALS. WILL CONTINUE TO MONITOR.
--- NOTE | 2018-12-01 15:34 | NUR ---
ON-GOING ASSESSMENT: CM REVIEWED CHART AND MET WITH PATIENT AT THE BEDSIDE. PT IS AGREEABLE TO GO TO LTAC AND HAS CHOSEN TO GO TO [facility]. PT REQUESTING A PRIVATE ROOM. ARLINE SPOKE WITH [facility] WHO STATES THEY CAN DO THAT AND SHE ALSO MET AND TALKED WITH PATIENT THIS AM. PT IS TO HAVE LINE PLACED PRIOR TO GOING TO [facility]. CM FAXED D/C PAPEWORK TO [facility] AND CONFIRMED THEY RECEIVED IT. [facility] HAS ARRANGED FOR TRANSPORTATION FOR 1730. ARLINE NOTIFIED PATIENTS DAUGHTER WELL BEDSIDE RN AND PT. CHART COPY WAS ORDERED. ARLINE PROVIDED BEDSIDE RN WITH NUMBER FOR REPORT. PT REPORTS NO FURTHER QUESTIONS FROM ARLINE AT THIS TIME.
--- NOTE | 2018-12-01 15:40 | NUR ---
CONSULTED TO PLACE A LINE FOR A PATIENT DISCHARGING TO A SNF WITH 2 WEEKS OF IV ANTIBIOTICS. ORDER NOTED AND A VERBAL CONSENT OBATAINED AFTER THE PROCEDURE WELL BENIFITS AND RISKS FOR DVT AND INFECTION WERE DISCUSSED WITH THE PATIENT AND SHE VERBALIZED UNDERSTANDING. THE LEFT UPPER ARM BRACHIAL WAS WIDLEY PATENT AND A #4F POWERMIDLINE WAS PLACED PER HOSPITAL POLICY. LINE WAS TRIMMED TO 15CM AND ADVANCED WITHOUT DIFFICULTY. LINE SECURED AND RELEASED FOR USE
[2018-12-01 17:14] VITALS: BP 162/72
--- NOTE | 2018-12-03 12:47 | D ---
[facility] [place] [address] DISCHARGE SUMMARY Name: TOM BELL MOHINDER Room #: 357-P [facility] IN M.R.#: [id number] Admission: 11/26/18 ������������������ Attend Phys: Horace Hill Discharge: 12/01/18 ������������������ Date of : 30 Report #: [id number] THIS REPORT FOR: //name// CC: Reggie Mckenna FINAL DIAGNOSES: 1. Chronic obstructive pulmonary disease exacerbation. 2. Bronchiectasis. HOSPITAL COURSE: The patient was admitted with shortness of breath. Again, she was worked up for PE, which was negative and therefore was treated with COPD exacerbation due to underlying bronchiectasis, IV antibiotics, steroids, and pulmonary treatments ordered. Pulmonary Service followed her as well. PHYSICAL EXAMINATION: GENERAL: On the day of discharge, she was awake and alert, in no distress. VITAL SIGNS: Stable and reviewed electronically. LUNGS: Had expiratory rhonchi. HEART: Regular. ABDOMEN: Soft, normoactive bowel sounds. EXTREMITIES: No edema. DISPOSITION: She will be transferred to [facility] for ongoing pulmonary care and IV antibiotic and steroids and rehabilitation efforts. I have signed all her transfer medications, diet, activity, therapy orders and she will continue do not resuscitate status. ��������������������������������������������� <ELECTRONICALLY SIGNED> ���������������������������������������� By: Bryan Lynne MD ��������������������������������������������� 12/03/18 1247 1357 1421 Bryan Lynne MD /nt
== END 2018-12-01 18:31 | DRG 189 ==
LOC: ER 09:56 → EROBS 13:09 → 3W 13:09
PROVIDERS: Internal Medicine Geriatric Medicine; Nurse Practitioner Family; ADMIT Internal Medicine
DX: J96.21 Acute and chronic respiratory failure with hypoxia (principal); J44.1 Chronic obstructive pulmonary disease with (acute) exacerbation; I50.32 Chronic diastolic (congestive) heart failure; Z68.1 Body mass index [BMI] 19.9 or less, adult; J96.22 Acute and chronic respiratory failure with hypercapnia; Z66 Do not resuscitate; I25.10 Atherosclerotic heart disease of native coronary artery without angina pectoris; I11.0 Hypertensive heart disease with heart failure; K21.9 Gastro-esophageal reflux disease without esophagitis; M19.90 Unspecified osteoarthritis, unspecified site; Z86.711 Personal history of pulmonary embolism; Z95.5 Presence of coronary angioplasty implant and graft; Z82.49 Family history of ischemic heart disease and other diseases of the circulatory system; Z88.8 Allergy status to other drugs, medicaments and biological substances; Z88.0 Allergy status to penicillin; Z88.2 Allergy status to sulfonamides; Z88.1 Allergy status to other antibiotic agents; Z88.7 Allergy status to serum and vaccine; Z87.891 Personal history of nicotine dependence
CPT/HCPCS: 10879; 27000

== ENCOUNTER 2018-12-19 17:58 | Emergency (ER) | payer OTHER, BC ==
[~2018-12-19] VITALS: Ht 170.2 cm; Wt 62.6 kg
[2018-12-19 19:29] LABS: ABSOLUTE NEUTROPHILS 5.4 thou/uL (1.4-8.2); BASOPHILS 0.3 % (0.0-2.0); EOSINOPHILS 2.5 % (0.0-3.0); HEMATOCRIT 40.1 % (37.0-47.0); HEMOGLOBIN 13.3 gm/dL (12.0-15.0); LYMPHOCYTES 5.4 % (24.0-44.0); MCH 33.6 pg (26.0-34.0); MCHC 33.1 g/dL (28.0-37.0); MCV 101.5 fL (80.0-100.0); MONOCYTES 3.2 % (1.0-8.0); PLATELET COUNT 146 thou/uL (150-400); POLYS 88.6 % (36.0-66.0); RBC 3.95 mil/uL (4.20-5.00); RDW 12.6 % (10.5-14.5); WBC 6.1 thou/uL (4.0-11.0)
[2018-12-19 19:37] LABS: ANION GAP 3 mmol/L (7-16); BUN 22 mg/dL (7-18); CALCIUM 8.8 mg/dL (8.5-10.1); CHLORIDE 97 mmol/L (98-107); CO2 38 mmol/L (21-32); CREATININE 0.5 mg/dL (0.6-1.0); GLUCOSE 95 mg/dL (74-106); POTASSIUM 4.4 mmol/L (3.5-5.1); SODIUM 138 mmol/L (136-145)
[2018-12-19 19:48] LABS: TROPONIN-I <0.06 ng/mL (<0.06)
[2018-12-19 21:42] VITALS: BP 166/82
--- NOTE | 2018-12-20 10:59 | EKG ---
[place] [address] [address] [address] ELECTROCARDIOGRAM REPORT Name: TOM BELL MOHINDER [id number] ������������������ Admission: 12/19/18 ������������������ Attend Phys: Discharge: 12/19/18 ������������������ Date of : 30 Report #: [id number] ����������������������������������������������������������������� [id number] THIS REPORT FOR: //name// [facility] ED Test Date: 2018-12-19 Test Time: 18:49:09 Pat Name: TOM BELL Department: Room: Gender: F Bankruptcy Legal Assistant: KENYATTA : 1930 Requested By: Debbie Garcia Order Number: [id number] MD: Michael Miles Measurements Intervals [place] Rate: 99 P: 53 AR: 195 QRS: -36 QRSD: 78 T: 27 QT: 324 QTc: 416 Interpretive Statements Sinus rhythm Leftward axis Abnormal R-wave progression, late transition Compared to ECG 11/26/2018 10:28:24 No significant change was found Electronically Signed On 12-20-2018 10:58:55 CDT by Michael Miles [email or web address] ��������������������������������������������� <ELECTRONICALLY SIGNED> ���������������������������������������� By: Michael Miles MD, [facility] ��������������������������������������������� 12/20/18 1058 1849 184 Michael Miles MD, [facility] /EPI
== END 2018-12-19 21:52 | disposition home or self-care (01) ==
LOC: ER 17:58
PROVIDERS: Emergency Medicine
DX: J98.4 Other disorders of lung (principal); R07.89 Other chest pain; I10 Essential (primary) hypertension; K21.9 Gastro-esophageal reflux disease without esophagitis; J44.9 Chronic obstructive pulmonary disease, unspecified; Z87.891 Personal history of nicotine dependence; Z88.0 Allergy status to penicillin; Z88.2 Allergy status to sulfonamides; Z88.8 Allergy status to other drugs, medicaments and biological substances